=== PATIENT | female | born 1980 | race Two or more races ===

== ENCOUNTER 2016-09-29 17:30 | Emergency (ER) | payer OTHER ==
[~2016-09-29] VITALS: Ht 154.9 cm; Wt 56.7 kg
[2016-09-29] MEDS ORDERED: SODIUM CHLORIDE 0.9% 1,000 ML IV ONE (18:32)
[2016-09-29] MEDS ORDERED: KETOROLAC TROMETH 30 MG/ML 1ML VIAL IV ONE (18:45)
[2016-09-29 19:15] LABS: Basophils # (auto) 0 uL; Basophils % (auto) 0.6 % (0.0-2.0); CONDITION Y; Eosinophils # (auto) 0.4 uL; Eosinophils % (auto) 4.8 % (0.0-7.0); Hematocrit 36.5 % (36.0-46.0); Hemoglobin 12.2 g/dL (12.2-16.2); Lymphocytes # (auto) 2.5 uL; Lymphocytes % (auto) 29.9 % (10.0-50.0); Mean Corpuscular Hemoglobin 29.8 pg (28.0-32.0); Mean Corpuscular Hgb Conc. 33.4 g/dL (32.0-36.0); Mean Corpuscular Volume 89.2 fL (80.0-100.0); Mean Platelet Volume 8.1 fL (7.4-10.4); Monocytes # (auto) 0.6 uL; Neutrophils # (auto) 4.7 uL; Neutrophils % (auto) 57.7 % (37.0-80.0); Platelet Count (auto) 398 10^3/uL (140-450); Red Cell Distribution Width 14.3 % (11.6-16.0); White Blood Cell 8.2 10^3/uL (4.4-10.8)
[2016-09-29 19:28] LABS: Albumin 3.4 g/dL (3.4-5.0); Alkaline Phosphatase 82 U/L (45-117); Anion Gap 9 (5-15); Aspartate Aminotransferase 13 U/L (15-37); BUN/Creatinine Ratio 18.9; Bilirubin, Total 0.2 mg/dL (0.2-1.0); Blood Urea Nitrogen 10 mg/dL (7-18); Calcium 8.3 mg/dL (8.5-10.1); Carbon Dioxide 24 mmol/L (21-32); Chloride 106 mmol/L (98-107); GFR African American 166 mL/min; GFR Non-African American 137 mL/min; Glucose 87 mg/dL (74-106); Magnesium 2.3 mg/dL (1.6-2.6); Potassium 3.8 mmol/L (3.5-5.1); Sodium 139 mmol/L (136-145); Total Protein 7.4 g/dL (6.4-8.2)
[2016-09-29 19:55] LABS: B-Type Natriuretic Peptide 4.95 pg/mL (0-100)
[2016-09-29 20:13] LABS: Temperature: 20.7 C (20.0-25.0)
[2016-09-29 20:25] LABS: Urine Bilirubin Negative (Negative); Urine Color Yellow (Yellow); Urine Glucose Normal (Normal); Urine Ketone Negative (Negative); Urine Mucus FEW (None Seen); Urine Nitrite Negative (Negative); Urine RBC 9 /hpf (0 - 4); Urine Squamous Epithelial Cell FEW /hpf (<5); Urine Urobilinogen Normal (Negative); Urine pH 6.5 (5.0-8.0)
[2016-09-29 20:35] LABS: Urine Blood 1+ /uL (Negative)
[2016-09-29 22:33] VITALS: BP 100/64
== END 2016-09-29 22:34 | disposition home or self-care (01) ==
LOC: ER 17:32
DX: G57.93 Unspecified mononeuropathy of bilateral lower limbs (principal); R60.9 Edema, unspecified; Z98.51 Tubal ligation status; R06.02 Shortness of breath
CPT/HCPCS: 36415; 71010; 80053; 81001; 81025; 83735; 83880; 84484; 85025; 93005; 94761; 96361; 96374; 99285; J1885; J7030

== ENCOUNTER 2016-10-10 08:30 | Emergency (ER) | payer OTHER ==
[~2016-10-10] VITALS: Ht 154.9 cm; Wt 67.1 kg
[2016-10-10 10:12] VITALS: BP 114/61
[2016-10-10] MEDS ORDERED: SODIUM CHLORIDE 0.9% 1,000 ML IV ONE (10:43)
[2016-10-10] MEDS ORDERED: KETOROLAC TROMETH 30 MG/ML 1ML VIAL IV ONE (11:15)
[2016-10-10 11:24] LABS: Basophils # (auto) 0 uL; Basophils % (auto) 0.3 % (0.0-2.0); CONDITION Y; Eosinophils # (auto) 0.6 uL; Eosinophils % (auto) 6.6 % (0.0-7.0); Hematocrit 37.8 % (36.0-46.0); Hemoglobin 12.8 g/dL (12.2-16.2); Lymphocytes % (auto) 23.3 % (10.0-50.0); Mean Corpuscular Hemoglobin 30.2 pg (28.0-32.0); Mean Corpuscular Hgb Conc. 33.8 g/dL (32.0-36.0); Mean Corpuscular Volume 89.5 fL (80.0-100.0); Mean Platelet Volume 8.2 fL (7.4-10.4); Monocytes # (auto) 0.6 uL; Monocytes % (auto) 7.4 % (0.0-12.0); Neutrophils # (auto) 5.3 uL; Neutrophils % (auto) 62.4 % (37.0-80.0); Platelet Count (auto) 371 10^3/uL (140-450); Red Cell Distribution Width 14.4 % (11.6-16.0); White Blood Cell 8.4 10^3/uL (4.4-10.8)
[2016-10-10 11:59] LABS: Albumin 3.5 g/dL (3.4-5.0); BUN/Creatinine Ratio 15.8; Calcium 8.6 mg/dL (8.5-10.1)
[2016-10-10 12:01] LABS: Bilirubin, Total 0.3 mg/dL (0.2-1.0); Total Protein 7.2 g/dL (6.4-8.2)
== END 2016-10-10 12:18 | disposition home or self-care (01) ==
LOC: ER 08:37
DX: M79.605 Pain in left leg (principal); M79.604 Pain in right leg; Z98.51 Tubal ligation status
CPT/HCPCS: 36415; 80053; 85025; 93970; 96361; 96374; 99285; J1885; J7030

== ENCOUNTER 2019-05-09 20:50 | Emergency (ER) | payer OTHER ==
[~2019-05-09] VITALS: Ht 154.9 cm; Wt 68.0 kg
[2019-05-09 21:06] VITALS: BP 115/85
[2019-05-09] MEDS ORDERED: hydrOXYzine HCL 25 MG/ML VL IM ONE (23:45)
[2019-05-09] MEDS ORDERED: KETOROLAC TROMETH 60MG/2ML VIAL IM ONE (23:45)
[2019-05-10] MEDS ORDERED: hydrOXYzine 25 MG TAB or CAP PO ONE (00:03)
== END 2019-05-10 01:14 | disposition home or self-care (01) ==
LOC: ER 20:52
DX: R51 Headache (principal); F41.9 Anxiety disorder, unspecified; R19.7 Diarrhea, unspecified
CPT/HCPCS: 70450; 96372; 99284; J1885; J3410

== ENCOUNTER → 2019-12-04 | Outpatient (CLI) | payer BC, OTHER ==
[2019-12-04 11:02] LABS: Basophils # (auto) 0 10 ^3/uL (0-0.2); Basophils % (auto) 0.4 % (0.0-2.0); Eosinophils # (auto) 0.4 10 ^3/uL (0-0.8); Eosinophils % (auto) 4.1 % (0.0-7.0); Hematocrit 40.3 % (36.0-46.0); Hemoglobin 13.7 g/dL (12.2-16.2); Lymphocytes # (auto) 2.1 10 ^3/uL (0.4-5.4); Lymphocytes % (auto) 23.6 % (10.0-50.0); Mean Corpuscular Hemoglobin 30.8 pg (28.0-32.0); Mean Corpuscular Hgb Conc. 33.9 g/dL (32.0-36.0); Mean Corpuscular Volume 90.8 fL (80.0-100.0); Monocytes # (auto) 0.7 10 ^3/uL (0-1.3); Monocytes % (auto) 7.9 % (0.0-12.0); Neutrophils # (auto) 5.6 10 ^3/uL (1.6-8.6); Platelet Count (auto) 392 10^3/uL (140-450); Red Blood Cells 4.44 10^6/uL (4.0-5.20); Red Cell Distribution Width 12.7 % (11.8-14.3); White Blood Cell 8.8 10^3/uL (4.4-10.8)
[2019-12-04 11:29] LABS: Follicle Stimulating Hormone 4.07 IU/L (SEE BELOW); Leuteinizing Hormone 3.7 IU/L
== END | disposition home or self-care (01) ==
LOC: LAB 10:44
PROVIDERS: ATTEND Obstetrics & Gynecology
DX: N93.9 Abnormal uterine and vaginal bleeding, unspecified (principal)
CPT/HCPCS: 36415; 82670; 83001; 83002; 84403; 84443; 85025

== ENCOUNTER 2020-06-02 09:38 | Inpatient (IN) | payer BC, OTHER ==
[~2020-06-02] VITALS: Ht 152.4 cm; Wt 74.8 kg
[2020-06-02] MEDS ORDERED: ONDANSETRON HCL 4 MG/2 ML VIAL IV ONE (10:15)
[2020-06-02] MEDS ORDERED: SODIUM CHLORIDE 0.9% 1,000 ML IVB ONE (10:15)
[2020-06-02] MEDS ORDERED: MORPHINE SULFATE 4 MG/ML SYR/VIAL IV ONE (10:15)
[2020-06-02] MEDS ORDERED: PIPERACILLIN-TAZOB 3.375GM 100 ML IV ONE (10:15)
[2020-06-02] MEDS ORDERED: SODIUM CHLORIDE 0.9% 1,000 ML IV ONE (10:15)
[2020-06-02] MEDS ORDERED: IOHEXOL 300 MG/ML 100ML BOTTLE IJ ONE (10:23)
[2020-06-02 10:25] LABS: Eosinophils # (auto) 0.2 10 ^3/uL (0-0.8); Neutrophils # (auto) 11.8 10 ^3/uL (1.6-8.6); White Blood Cell 14.8 10^3/uL (4.4-10.8)
[2020-06-02 10:27] LABS: Basophils # (auto) 0 10 ^3/uL (0-0.2); Basophils % (auto) 0.2 % (0.0-2.0); Eosinophils % (auto) 1.5 % (0.0-7.0); Hemoglobin 11.9 g/dL (12.2-16.2); Lymphocytes # (auto) 1.8 10 ^3/uL (0.4-5.4); Mean Corpuscular Hemoglobin 31.3 pg (28.0-32.0); Mean Corpuscular Hgb Conc. 34.9 g/dL (32.0-36.0); Mean Corpuscular Volume 89.7 fL (80.0-100.0); Neutrophils % (auto) 79.3 % (37.0-80.0); Nucleated Red Blood Cells % 0.1 %; Red Blood Cells 3.79 10^6/uL (4.0-5.20); Red Cell Distribution Width 12.3 % (11.8-14.3)
[2020-06-02 11:02] LABS: Potassium 3.7 mmol/L (3.5-5.1)
[2020-06-02 11:03] LABS: Urine Bacteria FEW /hpf (None Seen); Urine Blood 2+ /uL (Negative); Urine Mucus FEW (None Seen); Urine WBC 4 /hpf (0 - 5)
[2020-06-02 11:09] LABS: Albumin 3.3 g/dL (3.4-5.0); BUN/Creatinine Ratio 16.7; Bilirubin, Total 0.4 mg/dL (0.2-1.0); Calcium 9.3 mg/dL (8.5-10.1); Total Protein 8.1 g/dL (6.4-8.2)
[2020-06-02] MEDS ORDERED: ONDANSETRON HCL 4 MG/2 ML VIAL IV PRN (11:45)
[2020-06-02] MEDS: SODIUM CHLORIDE 0.9% 1,000 ML IV SCH (11:45)
[2020-06-02] MEDS ORDERED: NITROGLYCERIN 0.4 MG SL TAB SL PRN (11:45)
[2020-06-02] MEDS ORDERED: ALUM & MAG HYDROX-SIMETH LIQ(MAALOX) 30 ML PO PRN (11:45)
[2020-06-02] MEDS ORDERED: ACETAMINOPHEN 325 MG TAB PO PRN (11:45)
[2020-06-02] MEDS ORDERED: MORPHINE SULFATE INJECTION 2 MG/ML SYRG IV PRN (11:45)
[2020-06-02] MEDS ORDERED: LACTATED RINGER'S 1,000 ML IV ONE (12:00)
[2020-06-02 12:28] LABS: Cholesterol 143 mg/dL (< 200); Triglycerides 140 mg/dL (< 150)
[2020-06-02] MEDS: CLINDAMYCIN 600MG IV 50 ML IV SCH ×2 (14:06→22:21)
[2020-06-02 14:17] LABS: INR 0.98 (0.9-1.15); Partial Thromboplastin Time 29.7 sec (23.0-31.2)
[2020-06-02 14:20] LABS: HDL Cholesterol 40 mg/dL (40-59)
[2020-06-02 15:14] LABS: Amphetamine Screen, Urine NEGATIVE (NEGATIVE); Barbiturate Scree,Urine NEGATIVE (NEGATIVE); Benzodiazephine Screen, Urine NEGATIVE (NEGATIVE); Cannabinoid Screen, Urine NEGATIVE (NEGATIVE); Cocaine Screen, Urine NEGATIVE (NEGATIVE); Opiate Scree,Urine NEGATIVE (NEGATIVE); Phencyclidine Screen, Urine NEGATIVE (NEGATIVE)
[2020-06-02] MEDS: MORPHINE SULFATE INJECTION 2 MG/ML SYRG IV PRN ×2 (15:58→20:36)
[2020-06-02] MEDS ORDERED: ESCI-34 PO (17:18)
[2020-06-02] MEDS ORDERED: TERB250T66 PO (17:18)
[2020-06-02] MEDS ORDERED: ESCI-28 PO (17:18)
[2020-06-02 17:28] VITALS: BP 105/67
[2020-06-02 20:20] VITALS: BP 94/63
[2020-06-02 22:00] VITALS: BP 94/63
[2020-06-03 05:00] VITALS: BP 101/64
[2020-06-03] MEDS: SODIUM CHLORIDE 0.9% 1,000 ML IV SCH (06:06)
[2020-06-03] MEDS: CLINDAMYCIN 600MG IV 50 ML IV SCH ×3 (06:07→21:35)
[2020-06-03] MEDS: MORPHINE SULFATE INJECTION 2 MG/ML SYRG IV PRN ×2 (06:55→11:24)
[2020-06-03 07:42] LABS: Basophils % (auto) 0.4 % (0.0-2.0); Eosinophils # (auto) 0.2 10 ^3/uL (0-0.8); Lymphocytes # (auto) 1.4 10 ^3/uL (0.4-5.4); Lymphocytes % (auto) 10.4 % (10.0-50.0); Monocytes % (auto) 7.1 % (0.0-12.0); Red Cell Distribution Width 12.4 % (11.8-14.3)
[2020-06-03 07:46] LABS: Basophils # (auto) 0 10 ^3/uL (0-0.2); Eosinophils % (auto) 1.2 % (0.0-7.0); Hematocrit 31.2 % (36.0-46.0); Hemoglobin 10.6 g/dL (12.2-16.2); Mean Corpuscular Hemoglobin 30.6 pg (28.0-32.0); Mean Corpuscular Hgb Conc. 33.9 g/dL (32.0-36.0); Mean Corpuscular Volume 90.3 fL (80.0-100.0); Monocytes # (auto) 0.9 10 ^3/uL (0-1.3); Neutrophils # (auto) 10.7 10 ^3/uL (1.6-8.6); Neutrophils % (auto) 80.9 % (37.0-80.0); Nucleated Red Blood Cells % 0.1 %; Red Blood Cells 3.45 10^6/uL (4.0-5.20); White Blood Cell 13.2 10^3/uL (4.4-10.8)
[2020-06-03 07:58] LABS: INR 1.03 (0.9-1.15); Partial Thromboplastin Time 29.6 sec (23.0-31.2)
[2020-06-03 08:01] LABS: Potassium 3.8 mmol/L (3.5-5.1)
[2020-06-03 08:03] LABS: % Iron Saturation 18.1 % (15-50)
[2020-06-03 08:10] LABS: Albumin 2.8 g/dL (3.4-5.0); BUN/Creatinine Ratio 15.9; Bilirubin, Total 0.7 mg/dL (0.2-1.0); Calcium 8.7 mg/dL (8.5-10.1); Magnesium 2.1 mg/dL (1.6-2.6); Phosphorus 3.8 mg/dL (2.5-4.90); Total Protein 7.1 g/dL (6.4-8.2)
[2020-06-03] MEDS: cefTRIAXone 1GM/50ML D5W 50 ML IV SCH (08:55)
[2020-06-03 09:00] VITALS: BP 101/63
[2020-06-03] MEDS: CITALOPRAM HYDROBR 20 MG TAB PO SCH (10:00)
[2020-06-03] MEDS: ENOXAPARIN SOD 40 MG/0.4 ML SYRINGE SC SCH (10:00)
[2020-06-03 12:25] LABS: LDL Cholesterol 85 mg/dL (< 100)
[2020-06-03 13:00] VITALS: BP 104/71
[2020-06-03] MEDS ORDERED: METOCLOPRAMIDE HCL 5MG/ml INJ 2ml VIAL IV PRN (14:45)
[2020-06-03] MEDS ORDERED: HYDROmorphone HCL 2 MG/ML VL IV PRN (14:45)
[2020-06-03] MEDS ORDERED: MORPHINE SULFATE 4 MG/ML SYR/VIAL IV PRN (14:45)
[2020-06-03] MEDS: ceFAZolin 1GM VL ONE ×2 (14:52→15:14)
[2020-06-03] MEDS ORDERED: SODIUM CHLORIDE LOCK 10 ML ONE (14:54)
[2020-06-03] MEDS ORDERED: PROPOFOL 10 MG/ML 20 ML IV ONE (14:54)
[2020-06-03] MEDS ORDERED: MIDAZOLAM HCL 2MG/2ML 2ml VIAL (1mg/ml) ONE (14:54)
[2020-06-03] MEDS ORDERED: ONDANSETRON HCL 4 MG/2 ML VIAL ONE (14:54)
[2020-06-03] MEDS ORDERED: fentaNYL CITRATE 100 MCG/2 ML VL ONE (14:54)
[2020-06-03] MEDS ORDERED: MEPERIDINE HCL (25 MG/ML) 1ML VIAL ONE (15:19)
[2020-06-03] MEDS ORDERED: NEOSTIGMINE 1 MG/ML INJ (10mg/10ML VIAL) ONE (15:26)
[2020-06-03] MEDS ORDERED: GLYCOPYRROLATE 0.2 MG/ML 1ML VIAL ONE (15:26)
[2020-06-03 17:17] VITALS: BP 94/58
[2020-06-03 22:00] VITALS: BP 99/59
[2020-06-04] MEDS: SODIUM CHLORIDE 0.9% 1,000 ML IV SCH ×2 (02:22→13:45)
[2020-06-04] MEDS: MORPHINE SULFATE INJECTION 2 MG/ML SYRG IV PRN ×2 (02:22→22:37)
[2020-06-04 05:00] VITALS: BP 92/56
[2020-06-04] MEDS: CLINDAMYCIN 600MG IV 50 ML IV SCH ×3 (06:55→22:36)
[2020-06-04] MEDS: CITALOPRAM HYDROBR 20 MG TAB PO SCH (08:21)
[2020-06-04] MEDS: ENOXAPARIN SOD 40 MG/0.4 ML SYRINGE SC SCH (08:22)
[2020-06-04] MEDS: cefTRIAXone 1GM/50ML D5W 50 ML IV SCH (08:22)
[2020-06-04 09:00] VITALS: BP 93/57
[2020-06-04 13:00] VITALS: BP 95/57
[2020-06-04 17:00] VITALS: BP 97/65
[2020-06-04] MEDS ORDERED: ERGOCALCIFEROL 50,000 UNIT(1.25MG) CAP PO SCH (21:15)
[2020-06-04 22:00] VITALS: BP 88/62
[2020-06-05 05:06] VITALS: BP 92/56
[2020-06-05] MEDS: CLINDAMYCIN 600MG IV 50 ML IV SCH ×3 (06:45→22:02)
[2020-06-05] MEDS: FERROUS SULFATE 325mg EC TAB PO SCH ×2 (08:30→19:17)
[2020-06-05] MEDS: CITALOPRAM HYDROBR 20 MG TAB PO SCH (08:31)
[2020-06-05] MEDS: ENOXAPARIN SOD 40 MG/0.4 ML SYRINGE SC SCH (08:31)
[2020-06-05] MEDS: cefTRIAXone 1GM/50ML D5W 50 ML IV SCH (08:31)
[2020-06-05 09:00] VITALS: BP 106/68
[2020-06-05] MEDS: MORPHINE SULFATE INJECTION 2 MG/ML SYRG IV PRN ×2 (10:13→21:18)
[2020-06-05] MEDS: DOCUSATE SOD 100 MG CAP PO PRN (12:37)
[2020-06-05] MEDS: HYDROcodone-ACET 5/325MG TAB PO PRN (12:37)
[2020-06-05 12:51] VITALS: BP 86/58
[2020-06-05 17:00] VITALS: BP 94/67
[2020-06-05 22:00] VITALS: BP 95/66
[2020-06-06 05:00] VITALS: BP 98/68
[2020-06-06] MEDS: CLINDAMYCIN 600MG IV 50 ML IV SCH ×2 (06:20→13:30)
[2020-06-06] MEDS: FERROUS SULFATE 325mg EC TAB PO SCH ×2 (08:13→17:26)
[2020-06-06 09:00] VITALS: BP 95/61
[2020-06-06] MEDS: cefTRIAXone 1GM/50ML D5W 50 ML IV SCH (09:31)
[2020-06-06] MEDS: DOCUSATE SOD 100 MG CAP PO PRN (09:32)
[2020-06-06] MEDS: CITALOPRAM HYDROBR 20 MG TAB PO SCH (09:32)
[2020-06-06] MEDS: ENOXAPARIN SOD 40 MG/0.4 ML SYRINGE SC SCH (09:32)
[2020-06-06 13:00] VITALS: BP 98/69
[2020-06-06] MEDS: HYDROcodone-ACET 5/325MG TAB PO PRN ×2 (13:49→20:14)
[2020-06-06] MEDS ORDERED: CLIN300C8 PO (16:43)
[2020-06-06 17:00] VITALS: BP 98/67
[2020-06-06] MEDS: LORazepam 0.5 MG TAB PO PRN (20:14)
[2020-06-06 21:59] VITALS: BP 101/62
[2020-06-07 05:00] VITALS: BP 110/76
[2020-06-07] MEDS: CLINDAMYCIN 600MG IV 50 ML IV SCH ×4 (05:52→21:28)
[2020-06-07] MEDS: FERROUS SULFATE 325mg EC TAB PO SCH ×2 (07:51→16:56)
[2020-06-07 09:00] VITALS: BP 102/74
[2020-06-07] MEDS: cefTRIAXone 1GM/50ML D5W 50 ML IV SCH (09:12)
[2020-06-07] MEDS: CITALOPRAM HYDROBR 20 MG TAB PO SCH (09:51)
[2020-06-07] MEDS: ENOXAPARIN SOD 40 MG/0.4 ML SYRINGE SC SCH (09:51)
[2020-06-07 12:54] VITALS: BP 101/64
[2020-06-07] MEDS ORDERED: FER325T PO (14:00)
[2020-06-07] MEDS ORDERED: ERGO1CAP23 PO (14:00)
[2020-06-07] MEDS ORDERED: LACTULOSE 20Gm/30ML SOLN PO ONE (16:45)
[2020-06-07 16:50] VITALS: BP 107/75
[2020-06-07] MEDS: DOCUSATE SOD 100 MG CAP PO PRN (17:23)
[2020-06-07] MEDS: HYDROcodone-ACET 5/325MG TAB PO PRN (17:23)
[2020-06-07 22:00] VITALS: BP 106/66
[2020-06-08 05:00] VITALS: BP 99/68
[2020-06-08] MEDS: CLINDAMYCIN 600MG IV 50 ML IV SCH ×3 (05:08→21:57)
[2020-06-08 08:00] VITALS: BP 99/64
[2020-06-08] MEDS: FERROUS SULFATE 325mg EC TAB PO SCH ×2 (08:53→17:32)
[2020-06-08] MEDS: cefTRIAXone 1GM/50ML D5W 50 ML IV SCH (08:53)
[2020-06-08 09:00] VITALS: BP 99/64
[2020-06-08] MEDS: ENOXAPARIN SOD 40 MG/0.4 ML SYRINGE SC SCH (09:55)
[2020-06-08] MEDS: CITALOPRAM HYDROBR 20 MG TAB PO SCH (09:55)
[2020-06-08 12:56] VITALS: BP 100/66
[2020-06-08] MEDS: HYDROcodone-ACET 5/325MG TAB PO PRN (14:31)
[2020-06-08 17:00] VITALS: BP 100/65
[2020-06-08 22:00] VITALS: BP 112/67
[2020-06-08] MEDS: LORazepam 0.5 MG TAB PO PRN (23:20)
[2020-06-09] MEDS: HYDROcodone-ACET 5/325MG TAB PO PRN ×3 (04:14→18:40)
[2020-06-09] MEDS: CLINDAMYCIN 600MG IV 50 ML IV SCH ×3 (05:13→21:26)
[2020-06-09 05:27] VITALS: BP 95/66
[2020-06-09 08:36] VITALS: BP 102/61
[2020-06-09] MEDS: FERROUS SULFATE 325mg EC TAB PO SCH ×2 (10:08→18:34)
[2020-06-09] MEDS: ENOXAPARIN SOD 40 MG/0.4 ML SYRINGE SC SCH (10:08)
[2020-06-09] MEDS: CITALOPRAM HYDROBR 20 MG TAB PO SCH (10:08)
[2020-06-09] MEDS: cefTRIAXone 1GM/50ML D5W 50 ML IV SCH (10:08)
[2020-06-09 10:22] LABS: Hemoglobin 11.6 g/dL (12.2-16.2)
[2020-06-09 10:24] LABS: Hematocrit 34.5 % (36.0-46.0); Mean Corpuscular Hemoglobin 30.2 pg (28.0-32.0); Mean Corpuscular Hgb Conc. 33.7 g/dL (32.0-36.0); Mean Corpuscular Volume 89.9 fL (80.0-100.0); Red Blood Cells 3.83 10^6/uL (4.0-5.20); Red Cell Distribution Width 12.5 % (11.8-14.3); White Blood Cell 7.9 10^3/uL (4.4-10.8)
[2020-06-09 10:32] LABS: Band Neutrophils % (manual) 0; Blast Cells 0; Metamyelocytes % 0; Myelocytes % 0; Promyelocytes % 0; Reactive Lymphocytes 0
[2020-06-09 10:35] LABS: Albumin 2.9 g/dL (3.4-5.0); Calcium 9.1 mg/dL (8.5-10.1); Potassium 4.2 mmol/L (3.5-5.1)
[2020-06-09 10:40] LABS: Bilirubin, Total 0.2 mg/dL (0.2-1.0); Total Protein 7.3 g/dL (6.4-8.2)
[2020-06-09 11:38] LABS: Basophils % (manual) 1 (0.0-2.0); Eosinophils % (manual) 6 (0-7); Lymphocytes % (manual) 24 (10.0-50.0); Monocytes % (manual) 5 (0-12)
[2020-06-09 12:44] VITALS: BP 92/60
[2020-06-09 16:16] VITALS: BP 88/60
[2020-06-09] MEDS: LORazepam 0.5 MG TAB PO PRN (21:26)
[2020-06-09 22:00] VITALS: BP 91/52
[2020-06-10 05:00] VITALS: BP 93/65
[2020-06-10] MEDS: CLINDAMYCIN 600MG IV 50 ML IV SCH ×2 (05:31→13:52)
[2020-06-10 09:00] VITALS: BP 100/67
[2020-06-10] MEDS: cefTRIAXone 1GM/50ML D5W 50 ML IV SCH (10:22)
[2020-06-10] MEDS: CITALOPRAM HYDROBR 20 MG TAB PO SCH (10:22)
[2020-06-10] MEDS: FERROUS SULFATE 325mg EC TAB PO SCH (10:22)
[2020-06-10] MEDS: ENOXAPARIN SOD 40 MG/0.4 ML SYRINGE SC SCH (10:23)
[2020-06-10] MEDS: HYDROcodone-ACET 5/325MG TAB PO PRN (12:32)
[2020-06-10 13:00] VITALS: BP 90/60
[2020-06-10 17:18] VITALS: BP 89/57
[2020-06-10 19:25] VITALS: BP 95/58
[2020-06-10 19:34] VITALS: BP 95/66
== END 2020-06-10 20:00 | disposition home health service (06) | DRG 856 ==
LOC: ER 09:38 → TELE 09:39 → TELE-EAST 16:50
PROVIDERS: ADMIT Hospitalist; ATTEND Internal Medicine Nephrology
PROC: 0W9F0ZZ Drainage of Abdominal Wall, Open Approach (ICD-10-PCS; principal; 2020-06-03 14:58)
DX: T81.41XA Infection following a procedure, superficial incisional surgical site, initial encounter (principal); A41.9 Sepsis, unspecified organism; E44.1 Mild protein-calorie malnutrition; E87.1 Hypo-osmolality and hyponatremia; L02.211 Cutaneous abscess of abdominal wall; L03.311 Cellulitis of abdominal wall; N39.0 Urinary tract infection, site not specified; B35.1 Tinea unguium; D50.0 Iron deficiency anemia secondary to blood loss (chronic); E55.9 Vitamin D deficiency, unspecified; F32.9 Major depressive disorder, single episode, unspecified; Y83.8 Other surgical procedures as the cause of abnormal reaction of the patient, or of later complication, without mention of misadventure at the time of the procedure; N83.209 Unspecified ovarian cyst, unspecified side; Z68.32 Body mass index [BMI] 32.0-32.9, adult; Y92.89 Other specified places as the place of occurrence of the external cause
CPT/HCPCS: 36415; 71045; 74177; 76705; 80053; 80061; 80307; 81001; 82306; 83036; 83540; 83550; 83605; 83735; 84100; 84443; 84484; 84702; 85007; 85025; 85027; 85610; 85730; 86850; 86900; 86901; 87040; 87070; 87077; 87086; 87186; 87205; 87426; 96365; 96366; 96375; 96376; G0378; J0690; J0696; J2250; J2405; J2543; J2704; J3490

== ENCOUNTER → 2020-07-17 | Outpatient (CLI) | payer BC, OTHER ==
[~2020-07-17] MED LIST: CLIN300C8 PO; ERGO1CAP23 PO; ESCI-28 PO; ESCI-34 PO; FER325T PO; TERB250T66 PO
[2020-07-17 11:32] LABS: Follicle Stimulating Hormone 4.77 IU/L (SEE BELOW); Leuteinizing Hormone 3.9 IU/L
== END | disposition home or self-care (01) ==
LOC: LAB 10:10
PROVIDERS: ATTEND Obstetrics & Gynecology
DX: R10.9 Unspecified abdominal pain (principal)
CPT/HCPCS: 36415; 82670; 83001; 83002; 84403; 84443

== ENCOUNTER 2020-09-17 05:21 | Emergency (ER) | payer BC, OTHER ==
[~2020-09-17] VITALS: Ht 154.9 cm; Wt 70.3 kg
[2020-09-17] MEDS ORDERED: SODIUM CHLORIDE 0.9% 1,000 ML IV ONE (07:15)
[2020-09-17 07:31] LABS: Urine Bacteria FEW /hpf (None Seen); Urine Blood 1+ /uL (Negative); Urine Mucus FEW (None Seen); Urine Specific Gravity 1.019 (1.001-1.035); Urine WBC 3 /hpf (0 - 5)
[2020-09-17 08:05] VITALS: BP 109/66
[2020-09-17 08:10] LABS: Basophils # (auto) 0 10 ^3/uL (0-0.2); Basophils % (auto) 0.5 % (0.0-2.0); Eosinophils # (auto) 0.2 10 ^3/uL (0-0.8); Eosinophils % (auto) 2.4 % (0.0-7.0); Hematocrit 39.9 % (36.0-46.0); Hemoglobin 13.8 g/dL (12.2-16.2); Lymphocytes # (auto) 1.9 10 ^3/uL (0.4-5.4); Lymphocytes % (auto) 22.1 % (10.0-50.0); Mean Corpuscular Hemoglobin 31.4 pg (28.0-32.0); Mean Corpuscular Hgb Conc. 34.6 g/dL (32.0-36.0); Mean Corpuscular Volume 90.9 fL (80.0-100.0); Monocytes # (auto) 0.6 10 ^3/uL (0-1.3); Monocytes % (auto) 6.5 % (0.0-12.0); Neutrophils # (auto) 5.9 10 ^3/uL (1.6-8.6); Neutrophils % (auto) 68.5 % (37.0-80.0); Red Blood Cells 4.39 10^6/uL (4.0-5.20); Red Cell Distribution Width 12.9 % (11.8-14.3); White Blood Cell 8.6 10^3/uL (4.4-10.8)
[2020-09-17 08:31] LABS: Albumin 3.7 g/dL (3.4-5.0); Calcium 8.7 mg/dL (8.5-10.1); Potassium 4.3 mmol/L (3.5-5.1)
[2020-09-17 08:36] LABS: BUN/Creatinine Ratio 17.9; Bilirubin, Total 0.5 mg/dL (0.2-1.0); Total Protein 8.1 g/dL (6.4-8.2)
== END 2020-09-17 09:46 | disposition home or self-care (01) ==
LOC: ER 05:21
DX: N20.0 Calculus of kidney (principal); Z98.51 Tubal ligation status; Z98.890 Other specified postprocedural states
CPT/HCPCS: 36415; 74176; 80053; 81001; 85025; 96360; 99284; J7030

== ENCOUNTER → 2020-12-29 | Outpatient (CLI) | payer BC, OTHER ==
[2020-12-29 11:26] LABS: Potassium 4.1 mmol/L (3.5-5.1)
[2020-12-29 11:35] LABS: Calcium 8.7 mg/dL (8.5-10.1)
== END | disposition home or self-care (01) ==
LOC: LAB 09:59
PROVIDERS: ATTEND Obstetrics & Gynecology
DX: N83.209 Unspecified ovarian cyst, unspecified side (principal)
CPT/HCPCS: 36415; 80048; 86304

== ENCOUNTER 2021-08-29 15:40 | Emergency (ER) | payer BC, MEDICAID, OTHER ==
[~2021-08-29] VITALS: Ht 154.9 cm; Wt 82.1 kg
[2021-08-29 17:13] LABS: Basophils # (auto) 0 10 ^3/uL (0-0.2); Basophils % (auto) 0.5 % (0.0-2.0); Eosinophils # (auto) 0.2 10 ^3/uL (0-0.8); Eosinophils % (auto) 3.7 % (0.0-7.0); Hematocrit 36.9 % (36.0-46.0); Lymphocytes % (auto) 31.8 % (10.0-50.0); Mean Corpuscular Hgb Conc. 32.5 g/dL (32.0-36.0); Mean Corpuscular Volume 89.4 fL (80.0-100.0); Monocytes # (auto) 0.5 10 ^3/uL (0-1.3); Monocytes % (auto) 7.6 % (0.0-12.0); Neutrophils # (auto) 3.6 10 ^3/uL (1.6-8.6); Neutrophils % (auto) 56.4 % (37.0-80.0); Red Blood Cells 4.13 10^6/uL (4.0-5.20); Red Cell Distribution Width 13.1 % (11.8-14.3); White Blood Cell 6.4 10^3/uL (4.4-10.8)
[2021-08-29 17:22] LABS: Albumin 3.4 g/dL (3.4-5.0); BUN/Creatinine Ratio 11.7; Calcium 8.6 mg/dL (8.5-10.1); Potassium 3.5 mmol/L (3.5-5.1)
[2021-08-29 17:24] LABS: Bilirubin, Total 0.2 mg/dL (0.2-1.0); Total Protein 7.2 g/dL (6.4-8.2)
[2021-08-29 17:26] LABS: INR 0.95 (0.9-1.15)
[2021-08-29] MEDS ORDERED: CLIN300C8 PO (18:37)
[2021-08-29 19:09] LABS: Urine Bacteria NONE SEEN /hpf (None Seen); Urine Blood 2+ /uL (Negative); Urine Mucus FEW (None Seen); Urine Specific Gravity 1.019 (1.001-1.035); Urine WBC 3 /hpf (0 - 5)
[2021-08-29 20:35] VITALS: BP 122/86
== END 2021-08-29 20:39 | disposition home or self-care (01) ==
LOC: ER 15:40
DX: L03.116 Cellulitis of left lower limb (principal); L03.115 Cellulitis of right lower limb; Z98.51 Tubal ligation status
CPT/HCPCS: 36415; 71046; 80053; 81001; 83880; 84484; 84702; 85025; 85610; 93970

== ENCOUNTER 2021-09-25 10:51 | Emergency (ER) | payer MEDICAID ==
[~2021-09-25] VITALS: Ht 154.9 cm; Wt 59.0 kg
[2021-09-25 11:54] VITALS: BP 106/60
[2021-09-25 12:58] LABS: Basophils # (auto) 0.1 10 ^3/uL (0-0.2); Basophils % (auto) 0.8 % (0.0-2.0); Eosinophils # (auto) 0.3 10 ^3/uL (0-0.8); Eosinophils % (auto) 3.6 % (0.0-7.0); Hematocrit 36.7 % (36.0-46.0); Hemoglobin 11.8 g/dL (12.2-16.2); Lymphocytes # (auto) 2.1 10 ^3/uL (0.4-5.4); Lymphocytes % (auto) 28.3 % (10.0-50.0); Mean Corpuscular Hemoglobin 28.3 pg (28.0-32.0); Mean Corpuscular Hgb Conc. 32.1 g/dL (32.0-36.0); Monocytes # (auto) 0.6 10 ^3/uL (0-1.3); Monocytes % (auto) 8.2 % (0.0-12.0); Neutrophils # (auto) 4.3 10 ^3/uL (1.6-8.6); Neutrophils % (auto) 59.1 % (37.0-80.0); Red Blood Cells 4.18 10^6/uL (4.0-5.20); Red Cell Distribution Width 13.5 % (11.8-14.3); White Blood Cell 7.3 10^3/uL (4.4-10.8)
[2021-09-25 13:17] LABS: BUN/Creatinine Ratio 16.7; Calcium 8.5 mg/dL (8.5-10.1); Potassium 3.3 mmol/L (3.5-5.1)
[2021-09-25] MEDS ORDERED: CLIN300C8 PO (13:49)
[2021-09-25] MEDS ORDERED: NAPR500T31 PO (13:49)
== END 2021-09-25 14:01 | disposition home or self-care (01) ==
LOC: ER 10:51
DX: R60.9 Edema, unspecified (principal); Z98.51 Tubal ligation status
CPT/HCPCS: 36415; 80048; 83880; 85025